=== PATIENT | female | born 1995 | race Caucasian/White ===

== ENCOUNTER → 2017-10-06 | Outpatient (CLI) | payer OTHER ==
--- NOTE | 2017-10-07 12:50 | REP ---
LEFT FOOT, FOUR VIEWS: HISTORY: Toe pain. There is a nondisplaced intraarticular fracture of the base of the distal phalange of the first digit. There is no dislocation. IMPRESSION: Nondisplaced fracture of the distal phalange of the first digit. Signed by Aamir Rodas MD 10/07/2017 01:19 P
== END ==
LOC: M LRY 16:11
PROVIDERS: ATTEND Nurse Practitioner Family
DX: M79.675 Pain in left toe(s) (principal)